=== PATIENT | female | born 1965 | race African-American/Black ===

== ENCOUNTER 2017-01-11 14:26 | Emergency (ER) | payer MEDICAID ==
[~2017-01-11 14:26] MED LIST: ASPI81TA2 PO; GABA-531 PO; HYDR12.54 PO; INSLAN SQ; INSU100C6; LISI20TA PO; NAPR500T3 PO; OXYC-158 PO; OXYC500S PO; ZOLP5TAB2 PO
[2017-01-11 15:31] LABS: GLUCOSE,POINT OF CARE 210 MG/DL (70-110)
[2017-01-11] MEDS ORDERED: PERTUSS(ACELL),DIPH,TET VAC/PF 0.5 ML VIAL IM ONE (17:20)
[2017-01-11] MEDS ORDERED: LIDOCAINE HCL BUFFERED 1% W/EPI 1:100,000 20 ML VIAL ONE (17:20)
[2017-01-11] MEDS ORDERED: BACITRACIN 0.9 GM PACKET OINTMENT TP ONE (17:50)
== END 2017-01-11 17:49 | disposition home or self-care (01) ==
LOC: EMS 14:27
DX: S71.131A Puncture wound without foreign body, right thigh, initial encounter (principal); W27.0XXA Contact with workbench tool, initial encounter; Y93.89 Activity, other specified; Y92.89 Other specified places as the place of occurrence of the external cause; Y99.8 Other external cause status
CPT/HCPCS: 12001; 82962; 90471; 90715; 99283; J3490